=== PATIENT | female | born 1965 | race African-American/Black ===

== ENCOUNTER 2019-02-28 18:40 | Emergency (ER) | payer BC, OTHER ==
[2019-02-28 19:04] VITALS: BP 117/79; BMI 28.3
[2019-02-28] MEDS ORDERED: IBUPROFEN 600 MG TABLET (FP) PO ONE ×2 (19:44→19:56)
--- NOTE | 2019-02-28 19:44 | PDOC ---
History of Present Illness - General Chief Complaint: Sore Throat Stated Complaint: FEVER/SORE THROAT/HEADACHE Time Seen by Provider: 02/28/19 19:36 History Source: Patient - History of Present Illness Initial Comments: 02/28/19 20:40 Chief complaint: Sore throat Patient 53-year-old female who is HIV positive states she is compliant with her meds and does not have any acute issues with the HIV who has had fever and sore throat for 4 days. Painful to swallow but able to swallow. No difficulty speaking. GENERAL/CONSTITUTIONAL: No fever, weakness. dizziness HEAD, EYES, EARS, NOSE AND THROAT: No change in vision. No ear pain or discharge. +sore throat. CARDIOVASCULAR: No chest pain RESPIRATORY: No shortness of breath or cough GASTROINTESTINAL: No pain, nausea, vomiting, diarrhea or constipation GENITOURINARY: No dysuria MUSCULOSKELETAL: No neck or back pain SKIN: No rash NEUROLOGIC: No headache, vertigo, loss of consciousness, or loss of sensation. GENERAL: The patient is awake, alert, and fully oriented, in no acute distress. HEAD: Normal with no signs of trauma. EYES: Pupils equal, round and reactive to light, sclera anicteric, conjunctiva clear. ENT: pharynx: +erythema, +exudate, uvula midline no signs of peritonsillar abscess, speech is normal NECK: supple, no swelling CHEST: clear, nontender, rr ABD: soft, nontender BACK: no tenderness or signs of injury EXTREMITIES: Normal range of motion, no edema. NEUROLOGICAL: Normal speech, normal gait. SKIN: Warm, Dry Past History - Past Medical History Allergies/Adverse Reactions: Allergies Allergy/AdvReac Type Severity Reaction Status Date / Time No Known Allergies Allergy Verified 02/28/19 19:04 Home Medications: Ambulatory Orders Ceftriaxone [Rocephin -] 2 gm IVPB DAILY #14 vial 07/14/14 Bactrim DS - 1 tab PO DAILY 07/25/14 Mycelex 1 tab PO TID 07/25/14 Clindamycin [Cleocin -] 300 mg PO Q6HPO #40 capsule 02/28/19 Anemia: Yes COPD: No - Psycho Social/Smoking Cessation Hx Smoking History: Never smoked Have you smoked in the past 12 months: No Hx Alcohol Use: No Drug/Substance Use Hx: No Substance Use Type: None Hx Substance Use Treatment: No *Physical Exam - Vital Signs Last Vital Signs Temp Pulse Resp BP Pulse Ox 102.9 F H 114 H 20 117/79 99 02/28/19 19:02 02/28/19 19:02 02/28/19 19:02 02/28/19 19:02 02/28/19 19:02 Medical Decision Making - Medical Decision Making 02/28/19 20:42 53-year-old female with sore throat and fever for 4 days, HIV positive, states compliant with meds and no acute issues with the HIV. Patient has erythema and exudate, no difficulty speaking or swallowing. Patient will have strep swab done, will be treated regardless. Will recheck vitals after antipyretics. 02/28/19 20:43 Patient allergic to penicillin, will give clindamycin. Patient has appointment with her doctor tomorrow 02/28/19 20:44 Discussed issues, findings, results, applicable medications and treatments and follow-up. All these were understood and all questions were answered 02/28/19 20:44 Discharge - Discharge Information Problems reviewed: Yes Clinical Impression/Diagnosis: Pharyngitis Qualifiers: Pharyngitis/tonsillitis etiology: unspecified etiology Qualified Code(s): J02.9 - Acute pharyngitis, unspecified Condition: Stable Disposition: HOME - Admission No - Additional Discharge Information Prescriptions: Clindamycin [Cleocin -] 300 mg PO Q6HPO #40 capsule - Follow up/Referral - Patient Discharge Instructions Patient Printed Discharge Instructions: DI for Pharyngitis/Tonsillopharyngitis -- Adult Additional Instructions: Drink 2-3 L of water daily Take clindamycin, 300 mg every 6 hours for 10 days Make sure to take a probiotic, such as Culturelle to protect her stomach and to prevent yeast infection Take Tylenol 650 mg every 4 hours or Motrin 600 mg every 6 hours for fever and pain Return to the nearest ER if short of breath, unable to swallow or feeling sicker Followup with your doctor tomorrow as scheduled - Post Discharge Activity
[2019-02-28] MEDS ORDERED: ACETAMINOPHEN 500 MG TABLET (FP) PO ONE (20:09)
[2019-02-28] MEDS ORDERED: ACETAMINOPHEN 500 MG TABLET (FP) ONE (20:13)
[2019-02-28 20:29] VITALS: PULSE 98; TEMP 100
== END 2019-02-28 20:49 | disposition home or self-care (01) ==
LOC: JERFT 18:40
DX: J02.9 Acute pharyngitis, unspecified (principal); Z21 Asymptomatic human immunodeficiency virus [HIV] infection status
CPT/HCPCS: 87070; 87880; 99282-25